=== PATIENT | male | born 1950 | race Two or more races ===

== ENCOUNTER 2021-03-07 21:08 | Emergency (ER) | payer BC, OTHER ==
[~2021-03-07] VITALS: Ht 172.7 cm; Wt 63.5 kg
--- NOTE | 2021-03-07 21:56 | NUR ---
PATIENT BIBSELF WITH C/O RIGHT EYE PAIN, STARTED TODAY. PATIENT STATES NO BLURRY VISION AT THIS TIME. PATIENT IS A/O X 4, RR EVEN AND UNLABORED, NO SOB NOTED. PATIENT CONNECTED TO CARDIAC AND POX MONITOR.
--- NOTE | 2021-03-07 21:57 | NUR ---
BOTH 20/15 CORRECTED R 20/20 L 20/20
[2021-03-07] MEDS ORDERED: FLUORESCEIN SODIUM OPHTH 1 EA STRIP OP ONE (22:30)
[2021-03-07] MEDS ORDERED: TETRAcaine 5 ML BOTTLE EACHEYE ONE (22:30)
[2021-03-07] MEDS ORDERED: FLUORESCEIN SODIUM OPHTH 1 EA STRIP ONE (22:35)
[2021-03-07] MEDS ORDERED: TOBR5DRO36 EACHEYE (22:58)
--- NOTE | 2021-03-07 23:00 | NUR ---
Patient discharged to home in stable condition. Written and verbal after care instructions given. Patient verbalizes understanding of instruction. RX given
[2021-03-07 23:01] VITALS: BP 129/77
== END 2021-03-07 23:03 | disposition home or self-care (01) ==
LOC: ER 21:16
DX: S05.01XA Injury of conjunctiva and corneal abrasion without foreign body, right eye, initial encounter (principal); X58.XXXA Exposure to other specified factors, initial encounter; Y93.01 Activity, walking, marching and hiking; Y92.89 Other specified places as the place of occurrence of the external cause; Y99.8 Other external cause status